=== PATIENT | female | born 1960 | race Caucasian/White ===

== ENCOUNTER 2020-12-25 08:54 | Day surgery (SDC) | payer OTHER ==
[2020-12-24 14:36] VITALS: BMI 37.3
[2020-12-25] MEDS ORDERED: Lidocaine 1% w/Epinephrine 1:100K 20 ML VIAL ONE (11:12)
[2020-12-25] MEDS ORDERED: Dexmedetomidine 200 MCG/2 ML VIAL ONE (11:22)
[2020-12-25] MEDS ORDERED: Scopolamine 1.5 mg/72 hour Patch ONE ×2 (11:22→11:53)
[2020-12-25] MEDS ORDERED: Fentanyl 100 MCG/2 ML VIAL ONE (11:23)
[2020-12-25] MEDS ORDERED: PHENYLEPHRINE-NS 100 MCG/ML 10 ML SYRINGE ONE (12:14)
[2020-12-25] MEDS ORDERED: Vecuronium 10 MG VIAL ONE (12:14)
[2020-12-25] MEDS ORDERED: Lidocaine 1% PF 5 ML VIAL ONE (12:14)
[2020-12-25] MEDS ORDERED: Dexamethasone 20 MG/5 ML VIAL ONE (12:14)
[2020-12-25] MEDS ORDERED: Glycopyrrolate 0.2 MG/ML 5 ML SYRINGE ONE (12:14)
[2020-12-25] MEDS ORDERED: PROPOFOL 200 MG/20 ML VIAL ONE (12:14)
[2020-12-25] MEDS ORDERED: Calcium Chloride 1 GM/10 ML Abboject SYRINGE ONE (12:14)
[2020-12-25] MEDS ORDERED: Ciprofloxacin 0.2% Otic (0.25ML CONTAINER) ONE (13:13)
== END 2020-12-25 15:20 | disposition home or self-care (01) ==
LOC: SDC 08:54
PROVIDERS: ATTEND Specialist
PROC: 0NR607Z Replacement of Left Temporal Bone with Autologous Tissue Substitute, Open Approach (ICD-10-PCS; principal; 2020-12-25)
DX: H71.22 Cholesteatoma of mastoid, left ear (principal); H70.12 Chronic mastoiditis, left ear; H66.92 Otitis media, unspecified, left ear; H72.92 Unspecified perforation of tympanic membrane, left ear; H69.83 Other specified disorders of Eustachian tube, bilateral; I10 Essential (primary) hypertension; E78.5 Hyperlipidemia, unspecified; J45.909 Unspecified asthma, uncomplicated; E03.9 Hypothyroidism, unspecified; F17.200 Nicotine dependence, unspecified, uncomplicated
CPT/HCPCS: 85014; 93005; 93010; J1100; J2704; J3010